=== PATIENT | male | born 1935 | race Caucasian/White ===

== ENCOUNTER 2018-11-21 10:35 | Emergency (ER) | payer MEDICARE ==
[2018-11-21] MEDS ORDERED: ACETAMINOPHEN 325 MG TAB ONE ×2 (12:06→12:17)
== END 2018-11-21 12:28 | disposition home or self-care (01) ==
LOC: EDH 10:35
DX: S60.222A Contusion of left hand, initial encounter (principal); S60.221A Contusion of right hand, initial encounter; I10 Essential (primary) hypertension; E78.5 Hyperlipidemia, unspecified; W18.39XA Other fall on same level, initial encounter; Y93.89 Activity, other specified; Y92.098 Other place in other non-institutional residence as the place of occurrence of the external cause; Y99.8 Other external cause status
CPT/HCPCS: 36415; 73130 ×2; 80048; 96372 ×2; 99283 ×2; J1885; J2930

== ENCOUNTER 2018-11-21 22:09 | Emergency (ER) | payer MEDICARE ==
[2018-11-21] MEDS ORDERED: METHYLPREDNISOLONE SOD SUCC 125MG/2ML VIAL ONE (22:41)
[2018-11-21 23:08] LABS: CREATININE 1.2 mg/dL (0.5-1.5); POTASSIUM 4.4 mmol/L (3.5-5.1)
[2018-11-21] MEDS ORDERED: KETOROLAC TROMETHAMINE 30MG/ML ONE (23:11)
== END 2018-11-21 23:49 | disposition home or self-care (01) ==
LOC: EDH 22:09
DX: S60.222A Contusion of left hand, initial encounter (principal); S60.221A Contusion of right hand, initial encounter; M19.042 Primary osteoarthritis, left hand; M19.041 Primary osteoarthritis, right hand; I10 Essential (primary) hypertension; E78.5 Hyperlipidemia, unspecified; Z95.1 Presence of aortocoronary bypass graft; Z87.891 Personal history of nicotine dependence; X58.XXXA Exposure to other specified factors, initial encounter; Y93.89 Activity, other specified; Y92.89 Other specified places as the place of occurrence of the external cause; Y99.8 Other external cause status
CPT/HCPCS: 36415; 80048; 96372 ×2; 99283; J1885; J2930